=== PATIENT | female | born 1975 | race Hispanic/Latino ===

== ENCOUNTER 2020-01-04 21:26 | Emergency (ER) | payer SELFPAY ==
[2020-01-04] MEDS ORDERED: MORPHINE 4 MG/ML SYR ONE (22:21)
[2020-01-04] MEDS ORDERED: ONDANSETRON 4 MG/2 ML VIAL ONE (22:21)
--- NOTE | 2020-01-04 23:09 | EDPHYS ---
Physician Documentation [facility] Name: Delmy Hemphill Age: 44 yrs Sex: Female : 1975 Arrival Date: 01/04/2020 Time: 21:30 Bed 5 Private MD: ED Physician Maurizio Angel HPI: 01/03 22:19 This 44 yrs old Female presents to ER via Ambulatory with complaints of pkl Lightheaded, Headache. 22:19 The patient complains of pain to the top of head and forehead. The patient describes pkl the headache as constant. Onset: The symptoms/episode began/occurred yesterday. Associated signs and symptoms: Pertinent positives: dizziness, nausea. Historical: - Allergies: 21:48 No Known Allergies; ss - Home Meds: 21:48 None [Active]; ss - PMHx: 21:48 None; ss - PSHx: 21:48 None; ss - Immunization history:: Adult Immunizations unknown. - Social history:: Smoking status: Patient denies any tobacco usage or history of. ROS: 22:19 Eyes: Negative for injury, pain, redness, and discharge, ENT: Negative for injury, pkl pain, and discharge, Neck: Negative for injury, pain, and swelling, Cardiovascular: Negative for chest pain, palpitations, and edema, Respiratory: Negative for shortness of breath, cough, wheezing, and pleuritic chest pain. 22:19 Abdomen/GI: Positive for nausea. 22:19 Back: Negative for acute changes. 22:19 : Negative for urinary symptoms. 22:19 MS/extremity: Negative for acute changes. 22:19 Skin: Negative for rash. 22:19 Neuro: Positive for dizziness, headache. Exam: 22:19 Head/Face: Normocephalic, atraumatic. Eyes: Pupils equal round and reactive to light, pkl extra-ocular motions intact. Lids and lashes normal. Conjunctiva and sclera are non-icteric and not injected. Cornea within normal limits. Periorbital areas with no swelling, redness, or edema. ENT: Nares patent. No nasal discharge, no septal abnormalities noted. Tympanic membranes are normal and external auditory canals are clear. Oropharynx with no redness, swelling, or masses, exudates, or evidence of obstruction, uvula midline. Mucous membranes moist. Neck: Trachea midline, no thyromegaly or masses palpated, and no cervical lymphadenopathy. Supple, full range of motion without nuchal rigidity, or vertebral point tenderness. No Meningismus. Chest/axilla: Normal chest wall appearance and motion. Nontender with no deformity. No lesions are appreciated. Cardiovascular: Regular rate and rhythm with a normal S1 and S2. No gallops, murmurs, or rubs. Normal PMI, no JVD. No pulse deficits. Respiratory: Lungs have equal breath sounds bilaterally, clear to auscultation and percussion. No rales, rhonchi or wheezes noted. No increased work of breathing, no retractions or nasal flaring. Abdomen/GI: Soft, non-tender, with normal bowel sounds. No distension or tympany. No guarding or rebound. No evidence of tenderness throughout. Back: No spinal tenderness. No costovertebral tenderness. Full range of motion. Skin: Warm, dry with normal turgor. Normal color with no rashes, no lesions, and no evidence of cellulitis. MS/ Extremity: Pulses equal, no cyanosis. Neurovascular intact. Full, normal range of motion. 22:19 Neuro: Orientation: is normal, Mentation: is normal, Memory: is normal, Cranial nerves: grossly normal, Cerebellar function: normal finger to nose testing, heel to bird testing is normal, Motor: is normal, Sensation: is normal, Gait: is steady. Vital Signs: 21:44 BP 154 / 100; Pulse 77; Resp 15; Temp 98.0(TE); Pulse Ox 99% on R/A; Weight 81.65 kg; ss Height 5 ft. 6 in. (167.64 cm); Pain 8/10; 22:20 BP 134 / 89; Pulse 75; Resp 16; Pulse Ox 99% ; rr5 23:16 BP 131 / 70; Pulse 70; Resp 16; Pulse Ox 99% ; rr5 21:44 Body Mass Index 29.05 (81.65 kg, 167.64 cm) ss MDM: 21:32 Patient medically screened. pkl 23:05 Data reviewed: vital signs, nurses notes. ED course: Patient feeling better. Discussed pkl CT Scan result with patient. Advised to follow up with PCP in 2 to 3 days. Patient understood instructions. 01/03 21:47 Order name: Urine --Ancillary (enter results) tt3 01/03 21:47 Order name: Urine Dipstick--Ancillary (enter results) tt3 01/03 22:00 Order name: CT Head Brain wo Cont pkl 01/03 21:49 Order name: Urine Dipstick-Ancillary (obtain specimen); Complete Time: 21:55 rr5 01/03 21:49 Order name: Urine Test (obtain specimen); Complete Time: 21:55 rr5 Administered Medications: 22:25 Drug: Zofran (Ondansetron) 4 mg Route: IVP; Site: left antecubital; rr5 23:11 Follow up: Response: No adverse reaction mg2 22:27 Drug: morphine 4 mg {Note: rass 0.} Route: IVP; Site: left antecubital; rr5 23:10 Follow up: Response: No adverse reaction; Marked relief of symptoms; RASS: Alert and mg2 Calm (0) 22:28 Not Given (Other Intervention Used): morphine 4 mg IM once; RASS on ADMIN: Combtv4, rr5 Very Agttd3, Agttd2, Rstlss1, AlertClm0, Drwsy-1, Lt Sdtn-2, Mod Sdtn-3, Dp Sdtn-4, UnArsble-5 22:28 Not Given (Other Intervention Used): Zofran (Ondansetron) 4 mg PO once rr5 Disposition: 01/04/20 23:08 Discharged to Home. Impression: Acute headache. Dizziness. - Condition is Stable. - Prescriptions for Antivert 25 mg Oral Tablet - take 1 tablet by ORAL route every 8 hours As needed; 20 tablet. Tylenol- Codeine #3 300-30 mg Oral Tablet - take 1 tablet by ORAL route every 8 hours As needed; 15 tablet. - Medication Reconciliation Form, Thank You Letter, Antibiotic Education, Prescription Opioid Use form. - Follow up: Private Physician; When: 2 - 3 days; Reason: Re-evaluation by your physician. - Problem is new. - Symptoms have improved. Signatures: Dispatcher [employer] EDMS Maurizio Angel MD MD pkl Stephanie Ritchie RN RN ss Pb Sanchez RN RN rr5 Richard Baig RN mg2 Corrections: (The following items were deleted from the chart) 23:17 23:08 01/04/2020 23:08 Discharged to Home. Impression: Acute headache. Dizziness. rr5 Condition is Stable. Forms are Medication Reconciliation Form, Thank You Letter, Antibiotic Education, Prescription Opioid Use. Follow up: Private Physician; When: 2 - 3 days; Reason: Re-evaluation by your physician. Problem is new. Symptoms have improved. pkl
--- NOTE | 2020-01-04 23:09 | ER ---
Nurse's Notes [facility] Name: Delmy Hemphill Age: 44 yrs Sex: Female : 1975 Arrival Date: 01/04/2020 Time: 21:30 Bed 5 Private MD: Diagnosis: Acute headache. Dizziness Presentation: 01/03 21:44 Chief complaint: Patient states: headache and lightheadedness that began yesterday ss evening. Is getting worse over time. Coronavirus screen: Client denies travel out of the [place] in the last 14 days. mild cough only at night. Client presents with at least one sign or symptom that may indicate coronavirus-19. Standard/surgical mask placed on the client. Provider contacted for isolation considerations. Ebola Screen: Patient denies exposure to infectious person. Patient denies travel to an Ebola-affected area in the 21 days before illness onset. Initial Sepsis Screen: Does the patient meet any 2 criteria? No. Patient's initial sepsis screen is negative. Does the patient have a suspected source of infection? No. Patient's initial sepsis screen is negative. Risk Assessment: Do you want to hurt yourself or someone else? Patient reports no desire to harm self or others. Onset of symptoms was January 04, 2020. 21:44 Method Of Arrival: Ambulatory ss 21:44 Acuity: YADIRA 3 ss Triage Assessment: 21:44 General: Appears in no apparent distress. uncomfortable, Behavior is calm, cooperative, rr5 appropriate for age. Pain: Also complains of inability to perform activities of daily living. 21:44 Headache History: The patient has had previous headaches and this one is different than rr5 previous episodes, and this one is more severe than previous episodes. Historical: - Allergies: 21:48 No Known Allergies; ss - Home Meds: 21:48 None [Active]; ss - PMHx: 21:48 None; ss - PSHx: 21:48 None; ss - Immunization history:: Adult Immunizations unknown. - Social history:: Smoking status: Patient denies any tobacco usage or history of. Screenin:48 Abuse screen: Denies threats or abuse. Denies injuries from another. Nutritional rr5 screening: No deficits noted. Tuberculosis screening: No symptoms or risk factors identified. Fall Risk None identified. Total Wright Fall Scale indicates No Risk (0-24 pts). Assessment: 21:46 General: Appears in no apparent distress. uncomfortable, Behavior is calm, cooperative, rr5 appropriate for age. Pain: Complains of pain in head Pain currently is 8 out of 10 on a pain scale. Quality of pain is described as aching, Pain began gradually, Is intermittent. Neuro: Level of Consciousness is awake, alert, obeys commands, Oriented to person, place, time, situation, Reports headache lightheaded. Cardiovascular: Capillary refill < 3 seconds Patient's skin is warm and dry. Respiratory: Airway is patent Respiratory effort is even, unlabored, Respiratory pattern is regular, symmetrical. GI: No signs and/or symptoms were reported involving the gastrointestinal system. : No signs and/or symptoms were reported regarding the genitourinary system. EENT: No signs and/or symptoms were reported regarding the EENT system. Derm: Skin is intact, is healthy with good turgor, Skin temperature is warm. Musculoskeletal: Circulation, motion, and sensation intact. Capillary refill < 3 seconds. 22:13 Reassessment: Patient appears in no apparent distress at this time. Patient is alert, rr5 oriented x 3, equal unlabored respirations, skin warm/dry/pink. back from CT scan. for Pain medication given. 23:23 Reassessment: Patient appears in no apparent distress at this time. Patient is alert, rr5 oriented x 3, equal unlabored respirations, skin warm/dry/pink. discharge instruction given and explained without complaints made. Patient states feeling better. Patient states symptoms have improved. Vital Signs: 21:44 BP 154 / 100; Pulse 77; Resp 15; Temp 98.0(TE); Pulse Ox 99% on R/A; Weight 81.65 kg; ss Height 5 ft. 6 in. (167.64 cm); Pain 8/10; 22:20 BP 134 / 89; Pulse 75; Resp 16; Pulse Ox 99% ; rr5 23:16 BP 131 / 70; Pulse 70; Resp 16; Pulse Ox 99% ; rr5 21:44 Body Mass Index 29.05 (81.65 kg, 167.64 cm) ED Course: 21:30 Patient arrived in ED. am2 21:32 Maurizio Angel MD is Attending Physician. pkl 21:34 Richard Baig, PEPE is Primary Nurse. mg2 21:46 Triage completed. ss 21:48 Arm band placed on right wrist. ss 21:48 Patient has correct armband on for positive identification. Placed in gown. Bed in low rr5 position. Call light in reach. Side rails up X2. Pulse ox on. NIBP on. 22:19 CT Head Brain wo Cont In Process Unspecified. EDMS 22:20 Inserted saline lock: 20 gauge in left antecubital area, using aseptic technique. rr5 23:18 No provider procedures requiring assistance completed. IV discontinued, intact, rr5 bleeding controlled, No redness/swelling at site. Pressure dressing applied. Administered Medications: 22:25 Drug: Zofran (Ondansetron) 4 mg Route: IVP; Site: left antecubital; rr5 23:11 Follow up: Response: No adverse reaction mg2 22:27 Drug: morphine 4 mg {Note: rass 0.} Route: IVP; Site: left antecubital; rr5 23:10 Follow up: Response: No adverse reaction; Marked relief of symptoms; RASS: Alert and mg2 Calm (0) 22:28 Not Given (Other Intervention Used): morphine 4 mg IM once; RASS on ADMIN: Combtv4, rr5 Very Agttd3, Agttd2, Rstlss1, AlertClm0, Drwsy-1, Lt Sdtn-2, Mod Sdtn-3, Dp Sdtn-4, UnArsble-5 22:28 Not Given (Other Intervention Used): Zofran (Ondansetron) 4 mg PO once rr5 Outcome: 23:08 Discharge ordered by . gustavo 23:16 Discharged to home ambulatory. rr5 23:16 Condition: stable 23:16 Discharge instructions given to patient, Instructed on discharge instructions, follow up and referral plans. medication usage, Demonstrated understanding of instructions, follow-up care, medications, Prescriptions given X 2. 23:17 Patient left the ED. rr5 Signatures: Dispatcher [employer] EDMS Maurizio Angel MD MD pkl Smirch, Shelby RN RN ss Yuliya Chris am2 Richard Baig RN RN mg2 Pb Sanchez RN RN rr5 Corrections: (The following items were deleted from the chart) 22:28 22:24 Zofran (Ondansetron) 4 mg PO rr5 rr5
[2020-01-04 23:22] LABS: Urine Blood 1+ (NEG); Urine Glucose NEGATIVE (NEG); Urine Protein NEGATIVE (NEG); Urine Specific Gravity >1.030 (1.005-1.030)
--- NOTE | 2020-01-05 19:21 | RAD REPORT ---
EXAM DESCRIPTION: CT - Head Brain Wo Cont - 01/05/2020 6:46 am CLINICAL HISTORY: 44 years Female Dizziness; Headache TECHNIQUE: Contiguous axial CT images obtained through the brain without IV contrast. Coronal and sa gittal reformats also provided. This CT exam was performed according to our departmental dose-optimization program, which includes on e or more of the following dose reduction techniques: automated exposure control, adjustment of the m A and/or kV according to patient size, and/or use of iterative reconstruction technique. COMPARISON: 10/12/2016 FINDINGS: There is no intracranial hemorrhage, extra-axial collection, or acute transcortical infarc tion. The ventricles are normal in size and contour without mass-effect or midline shift. Osseous structures are normal. The paranasal sinuses and mastoid air cells are clear. IMPRESSION: No acute intracranial abnormalities. Electronically signed by: Karime King MD 01/04/2020 10:31 PM CDT Due to temporary technical issues with the PACS/Fluency reporting system, reports are being signed by the in house radiologist without review as a courtesy to ensure prompt reporting. The interpreting r adiologist is fully responsible for the content of the report.
== END 2020-01-04 23:17 | disposition home or self-care (01) ==
LOC: ER 21:26
DX: R51 Headache (principal)
CPT/HCPCS: 70450; 81003; 81025; 96374; 96375; 99284; J2405

== ENCOUNTER 2020-03-07 13:51 | Emergency (ER) | payer SELFPAY ==
[2020-03-07 14:42] LABS: Urine Bacteria <20 /HPF (<20); Urine Culture Reflex Order REFLEXED; Urine Mucus 2+ /HPF (NONE SEEN)
--- NOTE | 2020-03-07 16:14 | EDPHYS ---
Physician Documentation [facility] Name: Delmy Hemphill Age: 44 yrs Sex: Female : 1975 Arrival Date: 03/07/2020 Time: 13:56 Bed 24 Private MD: GARY Physician Alok Andrews HPI: 03/07 16:06 This 44 yrs old Female presents to ER via Ambulatory with complaints of nick Urinary Problem. 16:06 The patient presents with urinary symptoms, dysuria, frequency, hematuria. Onset: The nick symptoms/episode began/occurred 2 day(s) ago. Modifying factors: The symptoms are alleviated by nothing, the symptoms are aggravated by nothing. Associated signs and symptoms: The patient has no apparent associated signs or symptoms. Severity of symptoms: At their worst the symptoms were mild, moderate, in the emergency department the symptoms are unchanged. The patient is sexually active, reportedly has a single partner. The patient has experienced similar episodes in the past, a few times. Historical: - Allergies: 13:58 No Known Allergies; sv - PMHx: 13:58 None; sv - PSHx: 13:58 None; sv - Immunization history:: Flu vaccine is not up to date. - Social history:: Smoking status: Patient denies any tobacco usage or history of. - Family history:: not pertinent. ROS: 16:06 Constitutional: Negative for fever, chills, and weight loss, Eyes: Negative for injury, nick pain, redness, and discharge, ENT: Negative for injury, pain, and discharge, Neck: Negative for injury, pain, and swelling, Cardiovascular: Negative for chest pain, palpitations, and edema, Respiratory: Negative for shortness of breath, cough, wheezing, and pleuritic chest pain, Abdomen/GI: Negative for abdominal pain, nausea, vomiting, diarrhea, and constipation, Back: Negative for injury and pain, MS/Extremity: Negative for injury and deformity, Skin: Negative for injury, rash, and discoloration, Neuro: Negative for headache, weakness, numbness, tingling, and seizure, Psych: Negative for depression, anxiety, suicide ideation, homicidal ideation, and hallucinations, Allergy/Immunology: Negative for hives, rash, and allergies, Endocrine: Negative for neck swelling, polydipsia, polyuria, polyphagia, and marked weight changes, Hematologic/Lymphatic: Negative for swollen nodes, abnormal bleeding, and unusual bruising. 16:06 : Positive for urinary frequency, small amounts, hematuria, burning with urination, difficulty urinating. Exam: 16:06 Constitutional: This is a well developed, well nourished patient who is awake, alert, nick and in no acute distress. Head/Face: Normocephalic, atraumatic. Eyes: Pupils equal round and reactive to light, extra-ocular motions intact. Lids and lashes normal. Conjunctiva and sclera are non-icteric and not injected. Cornea within normal limits. Periorbital areas with no swelling, redness, or edema. ENT: Nares patent. No nasal discharge, no septal abnormalities noted. Tympanic membranes are normal and external auditory canals are clear. Oropharynx with no redness, swelling, or masses, exudates, or evidence of obstruction, uvula midline. Mucous membranes moist. Neck: Trachea midline, no thyromegaly or masses palpated, and no cervical lymphadenopathy. Supple, full range of motion without nuchal rigidity, or vertebral point tenderness. No Meningismus. Chest/axilla: Normal chest wall appearance and motion. Nontender with no deformity. No lesions are appreciated. Cardiovascular: Regular rate and rhythm with a normal S1 and S2. No gallops, murmurs, or rubs. Normal PMI, no JVD. No pulse deficits. Respiratory: Lungs have equal breath sounds bilaterally, clear to auscultation and percussion. No rales, rhonchi or wheezes noted. No increased work of breathing, no retractions or nasal flaring. Abdomen/GI: Soft, non-tender, with normal bowel sounds. No distension or tympany. No guarding or rebound. No evidence of tenderness throughout. Back: No spinal tenderness. No costovertebral tenderness. Full range of motion. Pelvic Exam: Normal external genitalia. Speculum exam with closed cervical os, no discharge or bleeding noted. Bimanual exam with normal adnexa, no adnexal or cervical motion tenderness. Normal uterus. Female : Normal external genitalia. Skin: Warm, dry with normal turgor. Normal color with no rashes, no lesions, and no evidence of cellulitis. MS/ Extremity: Pulses equal, no cyanosis. Neurovascular intact. Full, normal range of motion. Neuro: Awake and alert, GCS 15, oriented to person, place, time, and situation. Cranial nerves II-XII grossly intact. Motor strength 5/5 in all extremities. Sensory grossly intact. Cerebellar exam normal. Normal gait. Psych: Awake, alert, with orientation to person, place and time. Behavior, mood, and affect are within normal limits. Vital Signs: 13:58 BP 138 / 95; Pulse 77; Resp 16; Temp 98.7; Pulse Ox 99% ; Weight 81.65 kg; Height 5 ft. sv 6 in. (167.64 cm); 13:58 Body Mass Index 29.05 (81.65 kg, 167.64 cm) sv MDM: 15:37 Patient medically screened. nick 16:09 Differential diagnosis: kidney stone, nonspecific abdominal pain, urinary tract nick infection. Data reviewed: vital signs, nurses notes, lab test result(s), urinalysis, bacteruria. Data interpreted: compliance monitor: not applicable for this patient encounter. Pulse oximetry: on room air is 99 %. Counseling: I had a detailed discussion with the patient and/or guardian regarding: the historical points, exam findings, and any diagnostic results supporting the discharge/admit diagnosis, lab results, the need for outpatient follow up, for definitive care, a family practitioner. 03/07 14:09 Order name: Urine Dipstick--Ancillary (enter results) 03/07 14:09 Order name: Urine Microscopic Only; Complete Time: 16:05 03/07 14:43 Order name: Urine Culture [facility] 03/07 16:09 Order name: Urine --Ancillary (enter results) 03/07 16:05 Order name: Urine Test (obtain specimen); Complete Time: 16:09 nick Administered Medications: 16:17 Drug: Cipro 500 mg Route: PO; hb 16:33 Follow up: Response: Medication administered at discharge. hb 16:18 Drug: Rocephin (cefTRIAXone) 1 grams Route: IM; Site: right deltoid; hb 16:33 Follow up: Response: No adverse reaction hb Disposition: 03/07/20 16:13 Discharged to Home. Impression: Dysuria, Urinary tract infection, site not specified. - Condition is Stable. - Discharge Instructions: Dysuria, Urinary Tract Infection, Adult, Urinary Tract Infection, Adult, [id number]. - Prescriptions for Cipro 250 mg Oral Tablet - take 1 tablet by ORAL route every 12 hours; 14 tablet. Pyridium 200 mg Oral Tablet - take 1 tablet by ORAL route every 8 hours for 3 days; 9 tablet. - Medication Reconciliation Form, Thank You Letter, Antibiotic Education, Prescription Opioid Use, Family Work Release form. - Follow up: Private Physician; When: 2 - 3 days; Reason: Recheck today's complaints, Continuance of care, Re-evaluation by your physician. Follow up: Akhil Ocampo DO; When: 2 - 3 days; Reason: Recheck today's complaints, Re-evaluation by your physician. - Problem is new. - Symptoms have improved. Signatures: Dispatcher [employer] Libby Marie RN RN Alok Borrero MD MD cha Baxter, Heather, RN RN hb Corrections: (The following items were deleted from the chart) 16:34 16:13 03/07/2020 16:13 Discharged to Home. Impression: Dysuria; Urinary tract hb infection, site not specified. Condition is Stable. Forms are Medication Reconciliation Form, Thank You Letter, Antibiotic Education, Prescription Opioid Use. Follow up: Private Physician; When: 2 - 3 days; Reason: Recheck today's complaints, Continuance of care, Re-evaluation by your physician. Follow up: Akhil Ocampo; When: 2 - 3 days; Reason: Recheck today's complaints, Re-evaluation by your physician. Problem is new. Symptoms have improved. nick
--- NOTE | 2020-03-07 16:14 | ER ---
Nurse's Notes [facility] Name: Delmy Hemphill Age: 44 yrs Sex: Female : 1975 Arrival Date: 03/07/2020 Time: 13:56 Bed 24 Private MD: Diagnosis: Dysuria;Urinary tract infection, site not specified Presentation: 03/07 13:57 Chief complaint: Patient states: burning with urination and pressure x 1 week. sv Coronavirus screen: Client denies travel out of the [place] in the last 14 days. At this time, the client does not indicate any symptoms associated with coronavirus-19. Ebola Screen: No symptoms or risks identified at this time. Risk Assessment: Do you want to hurt yourself or someone else? Patient reports no desire to harm self or others. Onset of symptoms was February 2020. 13:57 Method Of Arrival: Ambulatory sv 13:57 Acuity: YADIRA 4 sv 13:58 Initial Sepsis Screen: Does the patient meet any 2 criteria? No. Patient's initial sv sepsis screen is negative. Does the patient have a suspected source of infection? No. Patient's initial sepsis screen is negative. Triage Assessment: 14:01 General: Appears in no apparent distress. uncomfortable, Behavior is calm, cooperative, sv appropriate for age. Pain: Denies pain. Neuro: Level of Consciousness is awake, alert, obeys commands, Oriented to person, place, time, situation, Gait is steady. Respiratory: Respiratory effort is even, unlabored. : Reports burning with urination. Historical: - Allergies: 13:58 No Known Allergies; sv - PMHx: 13:58 None; sv - PSHx: 13:58 None; sv - Immunization history:: Flu vaccine is not up to date. - Social history:: Smoking status: Patient denies any tobacco usage or history of. - Family history:: not pertinent. Screenin:09 Abuse screen: Denies threats or abuse. Denies injuries from another. Nutritional hb screening: No deficits noted. Tuberculosis screening: No symptoms or risk factors identified. Fall Risk None identified. Assessment: 16:02 General: Appears in no apparent distress. Behavior is calm, cooperative. Pain: Pain hb currently is 2 out of 10 on a pain scale. Neuro: Level of Consciousness is awake, alert, obeys commands, Oriented to person, place, time, situation. Cardiovascular: Capillary refill < 3 seconds Patient's skin is warm and dry. Respiratory: Respiratory effort is even, unlabored, Respiratory pattern is regular, symmetrical. GI: No signs and/or symptoms were reported involving the gastrointestinal system. : Reports urgency, urinary frequency. EENT: No signs and/or symptoms were reported regarding the EENT system. Derm: Skin is pink, warm \T\ dry. Musculoskeletal: No signs and/or symptoms reported regarding the musculoskeletal system. 16:17 Reassessment: Discharge ordered, awaiting shot time. hb Vital Signs: 13:58 BP 138 / 95; Pulse 77; Resp 16; Temp 98.7; Pulse Ox 99% ; Weight 81.65 kg; Height 5 ft. sv 6 in. (167.64 cm); 13:58 Body Mass Index 29.05 (81.65 kg, 167.64 cm) sv ED Course: 13:56 Patient arrived in ED. mr 13:58 Triage completed. sv 13:58 Arm band placed on. sv 15:37 Alok Andrews MD is Attending Physician. nick 16:07 Yen Marinelli, PEPE is Primary Nurse. hb 16:09 Patient has correct armband on for positive identification. Bed in low position. Call hb light in reach. 16:12 Akhil Ocampo DO is Referral Physician. nick 16:33 No provider procedures requiring assistance completed. Patient did not have IV access hb during this emergency room visit. Administered Medications: 16:17 Drug: Cipro 500 mg Route: PO; hb 16:33 Follow up: Response: Medication administered at discharge. hb 16:18 Drug: Rocephin (cefTRIAXone) 1 grams Route: IM; Site: right deltoid; hb 16:33 Follow up: Response: No adverse reaction hb Outcome: 16:13 Discharge ordered by . nick 16:33 Discharged to home ambulatory. hb 16:33 Condition: stable 16:33 Discharge instructions given to patient, Instructed on discharge instructions, follow up and referral plans. medication usage, Demonstrated understanding of instructions, follow-up care, medications, Prescriptions given X 2. 16:34 Patient left the ED. hb Signatures: Libby Sherwood RN RN Alok Andrews MD MD cha Rivera, Mary mr Yen Marinelli, PEPE RN hb Corrections: (The following items were deleted from the chart) 14:00 13:58 BP 138 / 95; Pulse 77bpm; Resp 16bpm; Pulse Ox 99%; Temp 98.7F; 81.65 kg; Height sv 5 ft. 6 in.; BMI: 29.0; sv
[2020-03-07] MEDS ORDERED: CIPROFLOXACIN HCL 500 MG TAB ONE (16:26)
[2020-03-07] MEDS ORDERED: CEFTRIAXONE 1000 MG/VIAL ONE (16:26)
[2020-03-07] MEDS ORDERED: LIDOCAINE 1% MPF 2 ML AMPULE ONE (16:26)
[2020-03-07 17:27] VITALS: BP 138/95; TEMP 98.7; O2SAT 99
[2020-03-07 18:51] LABS: Urine Blood 2+ (NEG); Urine Glucose NEGATIVE (NEG); Urine Protein 1+ (NEG); Urine pH 5.5 (5.0-7.0)
== END 2020-03-07 16:34 | disposition home or self-care (01) ==
LOC: ER 13:51
DX: N39.0 Urinary tract infection, site not specified (principal); R31.9 Hematuria, unspecified
CPT/HCPCS: 81003; 81015; 81025; 87086; 87088; 96372; 99283; J2001

== ENCOUNTER → 2023-04-25 | Emergency (ER) | payer SELFPAY ==
[~2023-04-25] MED LIST: ACETAMINOPHEN 500 MG TAB ONE; DIPHENHYDRAMINE 50 MG/ML VIAL ONE; KETOROLAC 30 MG/ML INJ ONE; METOCLOPRAMIDE 10 MG/2mL INJ ONE; NA CHLORIDE 0.9% 1,000 ML ONE
[2023-04-25 09:55] LABS: Hematocrit 38.2 % (36.0-45.0); Lymphocytes % 22.7 % (15.3-44.8); MCV 92.1 fL (80-100); MPV 8.7 fL (7.6-11.3); Platelets 148 thou/uL (152-406); RBC Red Blood Cell Count 4.15 M/uL (3.86-4.86)
[2023-04-25 10:13] LABS: Albumin 3.4 g/dL (3.4-5.0); Bilirubin Total 0.4 mg/dL (0.2-1.0); Potassium 3.2 mEq/L (3.5-5.1); Protein, Total 7.3 g/dL (6.4-8.2)
--- NOTE | 2023-04-25 10:50 | ER ---
Nurse's Notes [facility] Name: Delmy Hemphill Age: 47 yrs Sex: Female : 1975 Arrival Date: 04/25/2023 Time: 09: Bed 18 Private MD: Diagnosis: Hypokalemia;Viral infection, unspecified Presentation: 04/25 09:31 Chief complaint: EMS states: pt was out shopping, she got weak, dizzy, almost passed iw out, she has been sick for past 5-6 days, + diarrhea, cold symptoms, body aches, chills, no vomiting, she had fever earlier this week but has since resolved. Coronavirus screen: Client presents with at least one sign or symptom that may indicate coronavirus-19. Ebola Screen: Patient negative for fever greater than or equal to 101.5 degrees Fahrenheit, and additional compatible Ebola Virus Disease symptoms Patient denies exposure to infectious person. Patient denies travel to an Ebola-affected area in the 21 days before illness onset. No symptoms or risks identified at this time. Initial Sepsis Screen: Does the patient meet any 2 criteria? No. Patient's initial sepsis screen is negative. Does the patient have a suspected source of infection? No. Patient's initial sepsis screen is negative. Risk Assessment: Do you want to hurt yourself or someone else? Patient reports no desire to harm self or others. Onset of symptoms was April 20, 2023. 09:31 Method Of Arrival: EMS: [facility] iw 09:31 Acuity: YADIRA 3 iw Historical: - Allergies: 09:32 No Known Allergies; iw - Home Meds: 09:32 None [Active]; iw - PMHx: 09:32 None; iw - PSHx: 09:32 tubal ligation; iw - Immunization history:: Adult Immunizations not up to date. - Social history:: Smoking status: Patient denies any tobacco usage or history of. Assessment: 09:46 General: Appears uncomfortable, ill, Behavior is calm, cooperative, appropriate for ll1 age, Reports fever for feeling ill for fatigue for. Pain: Complains of pain in head Pain currently is 7 out of 10 on a pain scale. Quality of pain is described as aching. Neuro: Reports dizziness, headache weakness. Respiratory: Reports cough that is. GI: Reports diarrhea, nausea. EENT: Reports nasal congestion. 10:15 Reassessment: No changes from previously documented assessment. Patient and/or family ll1 updated on plan of care and expected duration. Pain level reassessed. Patient is alert, oriented x 3, equal unlabored respirations, skin warm/dry/pink. Vital Signs: 09:33 BP 127 / 80; Pulse 85; Resp 16; Temp 99.2(O); Weight 79.38 kg; Height 5 ft. 7 in. ; iw Pain 8/10; 09:33 Body Mass Index 27.41 (79.38 kg, 170.18 cm) iw 09:33 Pain Scale: Adult iw ED Course: 09:25 Patient arrived in ED. ll1 09:26 Noah Hamilton MD is Attending Physician. ec2 09:26 Arm band placed on Patient placed in an exam room, on a stretcher. ll1 09:32 Triage completed. iw 09:46 Inserted saline lock: 20 gauge in right antecubital area, using aseptic technique. ds4 Blood collected. 09:47 CMP Sent. ds4 09:47 CBC with Diff Sent. ds4 10:14 Influenza Screen (a \T\ B) Sent. ll1 10:14 COVID-19 SARS RT PCR Sent. ll1 Administered Medications: 10:14 Drug: Acetaminophen PO 1000 mg PO once Route: PO; ll1 10:14 Drug: NS 0.9% IV 1000 ml IV at 1 bolus Per protocol; 1000 mL bolus Route: IV; Rate: 1 ll1 bolus; Site: right antecubital; 10:14 Drug: metoCLOPramide IVP 10 mg IVP once; over 1 to 2 minutes Route: IVP; Site: right ll1 antecubital; 10:14 Drug: diphenhydrAMINE IVP 25 mg IVP once Route: IVP; Site: right antecubital; ll1 10:14 Drug: Ketorolac IVP 15 mg IVP once Route: IVP; Site: right antecubital; ll1 Outcome: 10:50 Discharge ordered by . ec2 11:18 Patient left the ED. em1 Signatures: Altagracia Gibbons RN RN Tanvir Galvan em1 Shin Malave ds4 Liana Hilton RN RN ll1 Noah Hamilton MD MD ec2 Corrections: (The following items were deleted from the chart) 09:32 Home Meds: None; 33 09:32 Home Meds: tubal ligation; :48 09:47 Urinalysis W/Microscopic+U.LAB.GAMAL drawn and sent. ds4 EDMS
--- NOTE | 2023-04-25 10:50 | EDPHYS ---
Physician Documentation [facility] Name: Delmy Hemphill Age: 47 yrs Sex: Female : 1975 Arrival Date: 04/25/2023 Time: : Bed 18 Private MD: ED Physician Noah Hamilton HPI: 04/25 09:38 This 47 yrs old Female presents to ER via EMS with complaints of General ec2 Weakness. 09:38 Patient arrives today for evaluation of generalized weakness. Patient reports that she ec2 has been having cough and cold symptoms ongoing for several days, states that she is having decreased p.o. intake with associated nausea as well as diarrhea. Patient reports no urinary complaints, no shortness of breath, no chest pain. Reports some generalized bodyaches as well. Reports multiple sick contacts with children at home with viral illnesses.. Historical: - Allergies: 09:32 No Known Allergies; iw - Home Meds: 09:32 None [Active]; iw - PMHx: 09:32 None; iw - PSHx: 09:32 tubal ligation; iw - Immunization history:: Adult Immunizations not up to date. - Social history:: Smoking status: Patient denies any tobacco usage or history of. ROS: 09:38 Constitutional: as per hpi ec2 Exam: 09:38 Constitutional: GEN: NAD Head: atraumatic Eyes: EOMI Ears: External ears are ec2 normal. CV: regular rate LUNGS: no respiratory distress, no wheezes, no rales, no rhonchi ABD: non-distended, soft, nontender, no guarding, not rigid SKIN: no evidence of rashes MSK: no evidence of trauma NEURO: moves all extremities equally Vital Signs: 09:33 BP 127 / 80; Pulse 85; Resp 16; Temp 99.2(O); Weight 79.38 kg; Height 5 ft. 7 in. ; iw Pain 8/10; 09:33 Body Mass Index 27.41 (79.38 kg, 170.18 cm) iw 09:33 Pain Scale: Adult iw MDM: 09:38 Data reviewed: vital signs. ED course: Patient arrives today for URI signs and symptoms ec2 as well as generalized weakness. Examination remarkable for well-appearing nontoxic individual is otherwise in no acute distress. Will obtain lab work, treat the patient symptoms and reassess the patient. Currently considering viral infection, low suspicion for process such as UTI, low suspicion for bacteremia, low suspicion for pneumonia given lack of focal lung sounds. . 09:44 Patient medically screened. ec2 10:45 ED course: CBC is reassuring. Metabolic profile with slight hypokalemia noted. ec2 Creatinine within normal ranges. Flu is negative. COVID testing negative. . 10:49 ED course: On reassessment patient is well-appearing in no acute distress, will ec2 discharge home and have him follow-up with primary care doctor. Return precautions given.. 04/25 09:37 Order name: CBC with Diff; Complete Time: 10:45 ec2 04/25 09:37 Order name: CMP; Complete Time: 10:45 ec2 04/25 09:38 Order name: Influenza Screen (a \T\ B); Complete Time: 10:45 ec2 04/25 09:38 Order name: COVID-19 SARS RT PCR; Complete Time: 10:45 ec2 Administered Medications: 10:14 Drug: Acetaminophen PO 1000 mg PO once Route: PO; ll1 10:14 Drug: NS 0.9% IV 1000 ml IV at 1 bolus Per protocol; 1000 mL bolus Route: IV; Rate: 1 ll1 bolus; Site: right antecubital; 10:14 Drug: metoCLOPramide IVP 10 mg IVP once; over 1 to 2 minutes Route: IVP; Site: right ll1 antecubital; 10:14 Drug: diphenhydrAMINE IVP 25 mg IVP once Route: IVP; Site: right antecubital; ll1 10:14 Drug: Ketorolac IVP 15 mg IVP once Route: IVP; Site: right antecubital; ll1 Disposition Summary: 04/25/23 10:50 Discharge Ordered Notes: Location: Home ec2 Problem: new ec2 Symptoms: have improved ec2 Condition: Stable ec2 Diagnosis - Hypokalemia ec2 - Viral infection, unspecified ec2 Followup: ec2 - With: Private Physician - When: - Reason: Recheck today's complaints Discharge Instructions: - Discharge Summary Sheet ec2 - Viral Illness, Adult ec2 Forms: - Medication Reconciliation Form ec2 - Thank You Letter ec2 - Antibiotic Education ec2 - Prescription Opioid Use ec2 - Patient Portal Instructions ec2 - Leadership Thank You Letter ec2 Prescriptions: - Reglan 10 mg Oral Tablet - take 1 tablet ORAL route every 6 hours take 30 minutes before meals and at ec2 bedtime; 20 tablet; Refills: 0, Product Selection Permitted Signatures: Dispatcher [employer] Altagracia Levy, RN PEPE Liana Hilton RN RN ll1 Noah Hamilton MD MD ec2 Corrections: (The following items were deleted from the chart) 09:33 09:32 Home Meds: None; [facility] :33 09:32 Home Meds: tubal ligation; [facility] 09:41 09:38 Constitutional: GEN: NAD Head: atraumatic Eyes: EOMI Ears: External ears are ec2 normal. CV: regular rate LUNGS: no respiratory distress, no wheezes, no rales, no rhonchi ABD: non-distended, soft, nontender, no guarding, not rigid SKIN: no evidence of rashes MSK: no evidence of trauma NEURO: moves all extremities equally ec2 09:48 09:38 Urinalysis W/Microscopic+U.LAB.BRZ ordered. EDMS EDMS
[2023-04-25 11:27] VITALS: BP 127/80; TEMP 99.2
== END ==
LOC: ER 09:22
DX: E87.6 Hypokalemia (principal); B34.9 Viral infection, unspecified; Z11.52 Encounter for screening for COVID-19
CPT/HCPCS: 36415; 80053; 85025; 87635; 87804; 96374; 96375; 99284; J1200; J2765; J7030